=== PATIENT | female | born 1945 | race Caucasian/White ===

== ENCOUNTER → 2018-06-23 | Outpatient (CLI) | payer MEDICARE, OTHER ==
[2018-06-23 11:12] LABS: ALBUMIN 3.7 GM/DL (3.2-5.2); ALBUMIN/GLOBULIN RATIO 1.19 (1.00-1.93); ALKALINE PHOSPHATASE 70 U/L (45-117); ALT/SGPT 26 U/L (12-78); ANION GAP 6 MEQ/L (8-16); AST/SGOT 22 U/L (7-37); BILIRUBIN,TOTAL 0.4 MG/DL (0.2-1.0); BLOOD UREA NITROGEN 11 MG/DL (7-18); CALCIUM LEVEL 8.9 MG/DL (8.8-10.2); CARBON DIOXIDE LEVEL 31 MEQ/L (21-32); CHLORIDE LEVEL 104 MEQ/L (98-107); CHOLESTEROL LEVEL 192 MG/DL (<200); CHOLESTEROL RISK RATIO 2.782 (<5); CREATININE FOR GFR 0.58 MG/DL (0.55-1.30); GLOMERULAR FILTRATION RATE > 60.0 (>39); GLUCOSE, FASTING 87 MG/DL (70-100); HDL CHOLESTEROL 69 MG/DL (>40); LDL CHOLESTEROL 100 MG/DL (<100); NON-HDL-C 123 MG/DL; POTASSIUM SERUM 4.5 MEQ/L (3.5-5.1); SODIUM LEVEL 141 MEQ/L (136-145); TOTAL PROTEIN 6.8 GM/DL (6.4-8.2); TRIGLYCERIDES LEVEL 115 MG/DL (<150)
[2018-06-23 11:34] LABS: TOTAL 25(OH) VITAMIN D 61.3 NG/ML (30.0-100.0)
[2018-06-23 12:14] LABS: HEPATITIS C VIRUS ABY INDEX 0.1 INDEX (<0.8)
== END ==
LOC: M LAB 09:35
DX: Z01.812 Encounter for preprocedural laboratory examination (principal); Z79.899 Other long term (current) drug therapy; R07.9 Chest pain, unspecified; M17.11 Unilateral primary osteoarthritis, right knee; Z79.82 Long term (current) use of aspirin; K21.9 Gastro-esophageal reflux disease without esophagitis; M81.0 Age-related osteoporosis without current pathological fracture
CPT/HCPCS: 71046; 80053

== ENCOUNTER → 2018-06-23 | Outpatient (CLI) | payer MEDICARE, OTHER | LOC: M LAB 09:42 | DX: Z01.818 Encounter for other preprocedural examination (principal); M17.11 Unilateral primary osteoarthritis, right knee; Z79.82 Long term (current) use of aspirin; K21.9 Gastro-esophageal reflux disease without esophagitis | CPT/HCPCS: 71046 ==

== ENCOUNTER 2018-07-11 08:01 | Inpatient (IN) | payer MEDICARE, OTHER ==
[2018-07-11] MEDS: LR 1,000 ML IV ×3 (07:30→12:30)
[2018-07-11] MEDS ORDERED: fentaNYL 100 MCG/2 ML INJECTION (J3010) As Ordered ×2 (09:03→09:35)
[2018-07-11] MEDS ORDERED: MIDAZOLAM INJ 2 MG/2 ML VIAL (J2250) As Ordered ×3 (09:03→09:35)
[2018-07-11] MEDS: fentaNYL 100 MCG/2 ML INJECTION (J3010) IV ×2 (09:20→09:23)
[2018-07-11] MEDS: MIDAZOLAM INJ 2 MG/2 ML VIAL (J2250) IV ×2 (09:20→09:22)
[2018-07-11] MEDS ORDERED: LIDOCAINE 2% INJ 100 MG/5 ML SDV (FOR ANES.) As Ordered (09:39)
[2018-07-11] MEDS ORDERED: PROPOFOL 200 MG/20 ML VIAL As Ordered (09:39)
[2018-07-11] MEDS ORDERED: dexameTHASONE 10 MG/1 ML VIAL PRES.FREE (J1100) (10:32)
[2018-07-11] MEDS ORDERED: ROPIvacaine 0.5% 30 ML INJECTION (J2795 PER 1MG) (10:32)
[2018-07-11] MEDS ORDERED: EPINEPHrine INJ 1 MG/ML 1ML AMP (10:32)
[2018-07-11] MEDS: ceFAZolin 1GM INJ (J0690 PER 500MG) As Ordered (10:40)
[2018-07-11] MEDS: EPINEPHrine INJ 1 MG/ML 1ML AMP As Ordered (10:41)
[2018-07-11] MEDS: TRANEXAMIC ACID 100 MG/ML 10ML VIAL As Ordered (10:41)
[2018-07-11] MEDS: BUPIVACAINE LIPOSOME/PF 1.3% 20ML VIAL (13.3MG/ML)(EXPAREL)(C9290 PER1MG) As Ordered (10:43)
[2018-07-11] MEDS: MORPHINE 1MG/ML IN 0.9% NACL 100ML IV BAG IV (11:45)
[2018-07-11] MEDS ORDERED: MORPHINE 1MG/ML IN 0.9% NACL 100ML IV BAG As Ordered (11:45)
[2018-07-11] MEDS ORDERED: MEPERIDINE INJ 25 MG/ML VIAL (J2175) IV (12:30)
[2018-07-11] MEDS ORDERED: fentaNYL 100 MCG/2 ML INJECTION (J3010) IV (12:30)
[2018-07-11] MEDS ORDERED: FLEET ENEMA PR (12:30)
[2018-07-11] MEDS ORDERED: ONDANSETRON 4MG/2ML VIAL (J2405) IV ×3 (12:30)
[2018-07-11] MEDS ORDERED: METOCLOPRAMIDE INJ 10MG/2ML VIAL (J2765) IV (12:30)
[2018-07-11] MEDS ORDERED: EPIDURAL/PCA KEYS XX (12:30)
[2018-07-11] MEDS ORDERED: diphenhydrAMINE INJ 50MG/ML VIAL (J1200) IV (12:30)
[2018-07-11] MEDS ORDERED: PERCOCET 5MG/325MG TAB PO (12:30)
[2018-07-11] MEDS ORDERED: ACETAMINOPHEN TAB 650MG DOSE (2X325MG) PO (12:30)
[2018-07-11] MEDS ORDERED: NALBUPHINE HCL 10 MG/ML AMP (J2300) IV (12:30)
[2018-07-11] MEDS ORDERED: NALOXONE INJ 0.4 MG/1 ML VIAL (J2310) IV (12:30)
[2018-07-11] MEDS ORDERED: METAMUCIL (PSYLLIUM) PACKET PO (15:00)
[2018-07-11] MEDS: ESCITALOPRAM OXALATE 10 MG TAB (LEXAPRO) PO (20:40)
[2018-07-11] MEDS: TOLTERODINE TARTRATE 2 MG LA CAP (DETROL LA) PO (20:40)
[2018-07-11] MEDS: SIMVASTATIN 40 MG TAB PO (20:40)
[2018-07-11] MEDS: SENOKOT S TAB PO (20:40)
[2018-07-11] MEDS ORDERED: TOLTERODINE (DETROL) 2 MG TAB PO (21:00)
[2018-07-12] MEDS: LR 1,000 ML IV ×2 (01:50→16:41)
[2018-07-12 06:18] LABS: HEMATOCRIT 35.5 % (36.0-47.0); HEMOGLOBIN 11.9 g/dl (12.0-15.5); MEAN CORPUSCULAR HEMOGLOBIN 31.8 pg (27.0-33.0); MEAN CORPUSCULAR HGB CONC 33.5 g/dl (32.0-36.5); MEAN CORPUSCULAR VOLUME 94.9 fl (80.0-96.0); PLATELET COUNT, AUTOMATED 224 10^3/uL (150-450); RED BLOOD COUNT 3.74 10^6/uL (4.00-5.40); WHITE BLOOD COUNT 10.7 10^3/uL (4.0-10.0)
[2018-07-12 06:48] LABS: ANION GAP 8 MEQ/L (8-16); BLOOD UREA NITROGEN 10 MG/DL (7-18); CARBON DIOXIDE LEVEL 27 MEQ/L (21-32); CHLORIDE LEVEL 105 MEQ/L (98-107); CREATININE FOR GFR 0.66 MG/DL (0.55-1.30); GLOMERULAR FILTRATION RATE > 60.0 (>39); GLUCOSE, FASTING 111 MG/DL (70-100); SODIUM LEVEL 140 MEQ/L (136-145)
[2018-07-12] MEDS: OMEGA-3 1000MG CAPSULE PO (09:17)
[2018-07-12] MEDS: MIRALAX *UNIT DOSE* 17GM PACKET PO (09:17)
[2018-07-12] MEDS: ONDANSETRON 4 MG TAB (S0181) PO ×3 (09:17→18:18)
[2018-07-12] MEDS: RIVAROXABAN 10 MG TAB (XARELTO) PO (09:17)
[2018-07-12] MEDS: MOM 30ML SUSPENSION UDC PO (09:17)
[2018-07-12] MEDS: SENOKOT S TAB PO ×2 (09:18→21:40)
[2018-07-12] MEDS: MULTIVITAMINS/MINERALS THERAP 1 TAB PO (09:18)
[2018-07-12] MEDS: VITAMIN D 1,000 INTERNATIONAL UNITS TABLET PO (09:18)
[2018-07-12] MEDS: PERCOCET 5MG/325MG TAB PO ×3 (09:18→18:18)
[2018-07-12] MEDS: OMEPRAZOLE 20 MG CAP PO (18:19)
[2018-07-12] MEDS: SIMVASTATIN 40 MG TAB PO (21:40)
[2018-07-12] MEDS: TOLTERODINE TARTRATE 2 MG LA CAP (DETROL LA) PO (21:40)
[2018-07-12] MEDS: ESCITALOPRAM OXALATE 10 MG TAB (LEXAPRO) PO (21:40)
[2018-07-12] MEDS: ACETAMINOPHEN 500 MG TAB PO (21:41)
[2018-07-13] MEDS: traMADol 50 MG TAB PO ×2 (01:19→08:51)
[2018-07-13] MEDS: LR 1,000 ML IV (02:31)
[2018-07-13] MEDS: ACETAMINOPHEN 500 MG TAB PO (05:41)
[2018-07-13 06:20] LABS: HEMATOCRIT 31.5 % (36.0-47.0); HEMOGLOBIN 10.7 g/dl (12.0-15.5); MEAN CORPUSCULAR HEMOGLOBIN 31.8 pg (27.0-33.0); MEAN CORPUSCULAR VOLUME 93.8 fl (80.0-96.0); PLATELET COUNT, AUTOMATED 207 10^3/uL (150-450); RED BLOOD COUNT 3.36 10^6/uL (4.00-5.40); RED CELL DISTRIBUTION WIDTH 12.8 % (11.5-14.5); WHITE BLOOD COUNT 8.6 10^3/uL (4.0-10.0)
[2018-07-13 06:45] LABS: ANION GAP 7 MEQ/L (8-16); BLOOD UREA NITROGEN 9 MG/DL (7-18); CALCIUM LEVEL 7.5 MG/DL (8.8-10.2); CARBON DIOXIDE LEVEL 29 MEQ/L (21-32); CHLORIDE LEVEL 101 MEQ/L (98-107); CREATININE FOR GFR 0.56 MG/DL (0.55-1.30); GLOMERULAR FILTRATION RATE > 60.0 (>39); GLUCOSE, FASTING 103 MG/DL (70-100); MAGNESIUM LEVEL 2.1 MG/DL (1.8-2.4); SODIUM LEVEL 137 MEQ/L (136-145)
[2018-07-13] MEDS: MOM 30ML SUSPENSION UDC PO (08:42)
[2018-07-13] MEDS: MIRALAX *UNIT DOSE* 17GM PACKET PO (08:42)
[2018-07-13] MEDS: OMEGA-3 1000MG CAPSULE PO (08:42)
[2018-07-13] MEDS: MULTIVITAMINS/MINERALS THERAP 1 TAB PO (08:43)
[2018-07-13] MEDS: SENOKOT S TAB PO (08:43)
[2018-07-13] MEDS: VITAMIN D 1,000 INTERNATIONAL UNITS TABLET PO (08:43)
[2018-07-13] MEDS: OMEPRAZOLE 20 MG CAP PO (08:43)
[2018-07-13] MEDS: RIVAROXABAN 10 MG TAB (XARELTO) PO (08:43)
== END 2018-07-13 11:00 | disposition home or self-care (01) | DRG 470 ==
LOC: M OR 08:01 → M MS5PR 12:40
PROC: 0SRC0J9 Replacement of Right Knee Joint with Synthetic Substitute, Cemented, Open Approach (ICD-10-PCS; principal; 2018-07-11 09:50)
DX: M17.11 Unilateral primary osteoarthritis, right knee (principal); Z79.82 Long term (current) use of aspirin; Z79.899 Other long term (current) drug therapy; K21.9 Gastro-esophageal reflux disease without esophagitis; M81.0 Age-related osteoporosis without current pathological fracture; F41.9 Anxiety disorder, unspecified; E78.5 Hyperlipidemia, unspecified; N39.3 Stress incontinence (female) (male)

== ENCOUNTER → 2021-04-01 | Outpatient (CLI) | payer MEDICARE, OTHER ==
[~2021-04-01] MED LIST: ASPI81TA86 PO; BONI1TAB PO; CHOL100029 PO; CO Q10CA PO; CO Q200C10 PO; DETR1TAB5 PO; ESCI20TA16 PO; FISH7.5C PO; ISOVUE-300 61% 50ML VIAL As Ordered ONE; LIDOCAINE 1% MDV 20ML VIAL As Ordered ONE; LOVA40TA PO; META48.54 PO; MULTCAP PO; PERC5TAB12 PO; TOLT2CAP4 PO; TRAM50TA2 PO; TRIAMCINOLONE ACETONIDE SUSP 40 MG/ML VIAL (J3301) As Ordered ONE; TYLE500T78 PO; VITA20008 PO; XARE10TA PO; ZOFR4TAB16 PO
--- NOTE | 2021-04-01 16:27 | REP ---
INDICATION: RT HIP OA W/PAIN. COMPARISON: None. TECHNIQUE: The procedure was performed under the direct supervision of Dr. Cantrell. The benefits and risks including but not limited to pain infection and bleeding and anaphylaxis were explained to the patient and informed consent was obtained. The right femoral neck was localized using fluoroscopic guidance. The skin was prepped and draped in a sterile fashion. 1% lidocaine was used as a local anesthetic. Using fluoroscopic guidance, and last image hold technology, a 22-gauge spinal needle was inserted and advanced to the femoral neck. 0.5 ml of Isovue-300 was injected to verify placement. Six ml of a solution containing 5 ml of 1% Xylocaine and 1 mL of Kenalog 40 mg was injected. The needle was then removed. The patient tolerated the procedure well and there were no immediate complications. Less than 6 seconds of fluoro time was utilized for this procedure. FINDINGS: None IMPRESSION: Fluoro guidance for right hip injection. <Electronically signed by Clark Bird > 04/01/21 1530 <Electronically signed by Pedro Cantrell > 04/01/21 [id number]
== END ==
LOC: M RADPRO 13:00
PROVIDERS: ATTEND Orthopaedic Surgery
DX: M16.11 Unilateral primary osteoarthritis, right hip (principal)
CPT/HCPCS: 20610; 77002; J3301; Q9967

== ENCOUNTER → 2022-02-01 | Outpatient (CLI) | payer MEDICARE, OTHER ==
[~2022-02-01] MED LIST changes: -ISOVUE-300 61% 50ML VIAL As Ordered ONE; -LIDOCAINE 1% MDV 20ML VIAL As Ordered ONE; -TRIAMCINOLONE ACETONIDE SUSP 40 MG/ML VIAL (J3301) As Ordered ONE
[2022-02-01 13:11] LABS: HEMATOCRIT 45.8 % (36.0-47.0); HEMOGLOBIN 15.1 g/dl (12.0-15.5); MEAN CORPUSCULAR HEMOGLOBIN 31.3 pg (27.0-33.0); PLATELET COUNT, AUTOMATED 309 10^3/uL (150-450); RED BLOOD COUNT 4.82 10^6/uL (4.00-5.40); WHITE BLOOD COUNT 6.6 10^3/uL (4.0-10.0)
[2022-02-01 13:28] LABS: INR 0.91; PROTHROMBIN TIME 12.7 SECONDS (12.7-14.5)
[2022-02-01 13:56] LABS: ERYTHROCYTE SEDIMENTATION RATE 13 mm/hr (0-30)
[2022-02-01 18:31] LABS: ALT/SGPT 23 U/L (12-78); BILIRUBIN,TOTAL 0.4 MG/DL (0.2-1.0); BLOOD UREA NITROGEN 8 MG/DL (7-18); CALCIUM LEVEL 9.6 MG/DL (8.8-10.2); CARBON DIOXIDE LEVEL 32 MEQ/L (21-32); CHLORIDE LEVEL 101 MEQ/L (98-107); CREATININE FOR GFR 0.61 MG/DL (0.55-1.30); GLOMERULAR FILTRATION RATE > 60.0 (>39); GLUCOSE, FASTING 91 MG/DL (70-100); POTASSIUM SERUM 3.8 MEQ/L (3.5-5.1); SODIUM LEVEL 136 MEQ/L (136-145); TOTAL PROTEIN 7.7 GM/DL (6.4-8.2)
== END ==
LOC: M RAD 12:17
PROVIDERS: ATTEND Orthopaedic Surgery
DX: Z01.810 Encounter for preprocedural cardiovascular examination (principal); R00.1 Bradycardia, unspecified; M84.352A Stress fracture, left femur, initial encounter for fracture; M16.12 Unilateral primary osteoarthritis, left hip

== ENCOUNTER → 2023-01-07 | Outpatient (CLI) | payer MEDICARE, OTHER ==
[~2023-01-07] MED LIST changes: +FISH10005 PO; -FISH7.5C PO; +ISOVUE-300 61% 100ML VIAL As Ordered ONE; +LIDOCAINE 1% MDV 20ML VIAL As Ordered ONE; +TRIAMCINOLONE ACETONIDE SUSP 40MG/ML 1ML VIAL As Ordered ONE
== END ==
LOC: M RAD 13:59
PROVIDERS: ATTEND Orthopaedic Surgery
DX: M16.11 Unilateral primary osteoarthritis, right hip (principal)
CPT/HCPCS: 20610; 77002; J3301; Q9967